=== PATIENT | female | born 1960 | race Caucasian/White ===

== ENCOUNTER → 2016-08-01 16:14 | Outpatient (CLI) | payer BC | END | disposition home or self-care (01) | LOC: D.MAMMO 14:30 | DX: Z12.31 Encounter for screening mammogram for malignant neoplasm of breast (principal) ==

== ENCOUNTER → 2017-09-09 16:29 | Outpatient (CLI) | payer BC | END | disposition home or self-care (01) | LOC: D.MAMMO 08-04 14:30 | DX: Z12.31 Encounter for screening mammogram for malignant neoplasm of breast (principal) ==

== ENCOUNTER → 2017-10-13 19:37 | Outpatient (CLI) | payer BC | END | disposition home or self-care (01) | LOC: D.MAMMO 13:30 | DX: R92.2 Inconclusive mammogram (principal) ==